=== PATIENT | male | born 1985 | race Two or more races ===

== ENCOUNTER 2021-10-17 10:18 | Emergency (ER) | payer OTHER ==
[2021-10-17 10:52] VITALS: BP 144/94; PULSE 83; RESP 18; TEMP 98.4
[2021-10-17] MEDS ORDERED: ORPHENADRINE 30 MG/ML 2 ML VIAL IM STA (11:05)
[2021-10-17] MEDS ORDERED: LIDOCAINE 5% PATCH TOPICAL SCH (11:15)
--- NOTE | 2021-10-17 11:15 | ED ---
Back Pain HPI - General Chief Complaint: Back Pain/Injury Stated Complaint: back pain Time Seen by Provider: 10/17/21 11:00 Source: patient, RN notes reviewed, old records reviewed - History of Present Illness Initial Comments: Well-appearing 36-year-old male presents ambulatory with complaints of left lower back pain since yesterday after he twisted his back while walking in the sand and tripped in a hole. He also had some low back strain while moving gas cans into the boat a couple of days earlier. He states that he went to the chiropractor who also applied kinesiology tape with no relief. Patient states that he did take Motrin this morning with no relief. He denies any bowel or bladder incontinence. No other injuries. MD Complaint: back pain -: days(s) (2) Similar Symptoms Previously: Yes Radiation: left leg Severity scale (1-10): 10 Quality: other (tight) Consistency: constant Improves With: none Worsens With: movement Context: turning/twisting, other (twisted walking in sand yesterday ) Associated Symptoms: denies other symptoms Treatments Prior to Arrival: NSAIDS, other (Chiropractor) - Related Data Previous Rx's Medication Instructions Recorded Cyclobenzaprine [Flexeril] 10 mg PO TID PRN #15 tab 10/17/21 Ibuprofen [Motrin] 600 mg PO Q8HR PRN #30 tab 10/17/21 Lidocaine 5% Patch [Lidoderm] 1 patch TOPICAL DAILY 20 Days #20 10/17/21 patch Allergies Allergy/AdvReac Type Severity Reaction Status Date / Time No Known Allergies Allergy Verified 10/17/21 11:12 Review of Systems ROS Statement: Those systems with pertinent positive or pertinent negative responses have been documented in the HPI. ROS Other: All systems not noted in ROS Statement are negative. Past Medical History Past Medical History: GERD/Reflux History of Any Multi-Drug Resistant Organisms: None Reported Past Surgical History: Hernia Repair Additional Past Surgical History / Comment(s): upper endoscopy Past Psychological History: No Psychological Hx Reported Smoking Status: Never smoker Past Alcohol Use History: Occasional Past Drug Use History: None Reported General Exam Limitations: no limitations General appearance: alert, in no apparent distress Head exam: Present: atraumatic, normocephalic Eye exam: Present: normal appearance. Absent: scleral icterus, conjunctival injection Neck exam: Present: normal inspection. Absent: meningismus Respiratory exam: Absent: respiratory distress, accessory muscle use Cardiovascular Exam: Present: regular rate Back exam: Present: normal inspection, tenderness, paraspinal tenderness (left LS spine). Absent: vertebral tenderness Expanded Back exam: Absent: saddle anesthesia Back exam: Negative Straight Leg Raising: Left, Right Neurological exam: Present: alert, oriented X3, normal gait Psychiatric exam: Present: normal affect, normal mood Skin exam: Present: warm, dry, normal color. Absent: cyanosis, diaphoretic Course Vital Signs 10/17/21 10:48 Temperature 98.4 F Pulse Rate 83 Respiratory 18 Rate Blood Pressure 144/94 O2 Sat by Pulse 99 Oximetry Medical Decision Making - Medical Decision Making Patient twisted his lower back yesterday while in the sand. 2 days prior he was lifting gas cans into the boat and felt a low back strain. Patient denies any bowel or bladder incontinence. No fevers. No history of cancer. No trauma. He is ambulatory with a steady gait with no evidence of foot drop. Patient's symptoms are consistent with low back strain. He was directed to continue taking Aleve or Motrin in addition to Flexeril and Lidoderm patches prescribed today. Patient was given a shot of Norflex and Lidoderm patch in the emergency room for pain. He did take Motrin this morning around 6 AM. I instructed him to follow-up with his primary care doctor next week. I did explain to him that back pain may take several weeks to resolve. He was given information on low back exercises with pain as a limiting factor. Case discussed with Dr. Ngo. Disposition Clinical Impression: Low back strain Disposition: HOME SELF-CARE Condition: Good Instructions (If sedation given, give patient instructions): Low Back Strain (ED), Acute Low Back Pain (ED), Lower Back Exercises (ED) Additional Instructions: Use the Flexeril and Lidoderm patches as prescribed. You can also use Motrin 600 mg every 8 hours or Aleve as needed for inflammation. Follow-up with your primary care doctor next week. Return to the emergency room with any new or concerning symptoms including bowel or bladder incontinence or inability to ambulate. Prescriptions: Cyclobenzaprine [Flexeril] 10 mg PO TID PRN #15 tab PRN Reason: Muscle Spasm Lidocaine 5% Patch [Lidoderm] 1 patch TOPICAL DAILY 20 Days #20 patch Ibuprofen [Motrin] 600 mg PO Q8HR PRN #30 tab PRN Reason: Pain Is patient prescribed a controlled substance at d/c from ED?: No Referrals: Nonstaff,Physician [Primary Care Provider] - 1-2 days Time of Disposition: 11:15
== END 2021-10-17 11:39 | disposition home or self-care (01) ==
LOC: EC 10:18
DX: S39.012A Strain of muscle, fascia and tendon of lower back, initial encounter (principal); K21.9 Gastro-esophageal reflux disease without esophagitis; Z79.899 Other long term (current) drug therapy; W18.42XA Slipping, tripping and stumbling without falling due to stepping into hole or opening, initial encounter
CPT/HCPCS: 99283; 96372; J2360